=== PATIENT | female | born 1950 | race Caucasian/White ===

== ENCOUNTER 2016-05-10 10:42 | Emergency (ER) | payer MEDICARE ==
[~2016-05-10 10:42] MED LIST: CIPRO500 MG PO; DIABETA2.5 MG PO; EFFEXOR75 MG PO; ENEMA BOTTLE1 EACH RC; GLUCOPHAGE500 MG PO; JANUVIA25 MG PO; MIRAPEX1 MG PO; PRILOSEC20 MG PO; PRINIVIL5 MG PO; PROMOD946 ML PO; SYNTHROID200 MCG PO; ULTRAM50 MG PO; ZOCOR20 MG PO
== END 2016-05-10 11:46 | disposition home or self-care (01) ==
LOC: ER 10:42
DX: J10.1 Influenza due to other identified influenza virus with other respiratory manifestations (principal); I50.9 Heart failure, unspecified; E11.9 Type 2 diabetes mellitus without complications; Z79.82 Long term (current) use of aspirin; Z79.84 Long term (current) use of oral hypoglycemic drugs; Z79.899 Other long term (current) drug therapy; Z91.040 Latex allergy status; Z88.2 Allergy status to sulfonamides
CPT/HCPCS: 36415; 87502; 96374; 96375; J0360